=== PATIENT | male | born 1950 | race Caucasian/White ===

== ENCOUNTER 2021-12-08 12:51 | Emergency (ER) | payer MEDICARE ==
[~2021-12-08] VITALS: Ht 180.3 cm; Wt 78.2 kg
[2021-12-08] MEDS ORDERED: HYDROCHLOROTHIA25 MG PO (13:13)
[2021-12-08] MEDS ORDERED: METOPROLOL SUCC25 MG PO ×2 (13:13→13:59)
[2021-12-08] MEDS ORDERED: LISINOPRIL20 MG PO (13:14)
--- NOTE | 2021-12-10 15:17 | EKG ---
[facility] [address] [place], [place] [address] Signed Sinus bradycardia Left axis deviation Septal infarct , age undetermined Abnormal ECG No previous ECGs available Confirmed by DARIEN PARKER MD ([id number]) on 12/10/2021 3:17:55 PM Electronically Signed By: DARIEN PARKER MD 12/10/21 1517 PATIENT NAME: RODOLFO CONTEH Electrocardiogram DATE OF : 48 PHYSICIAN: DARIEN PARKER MD REPORT #: [id number] REPORT IS CONFIDENTIAL AND NOT TO BE RELEASED WITHOUT AUTHORIZATION
== END 2021-12-08 14:11 | disposition home or self-care (01) ==
LOC: ED 12:51
DX: I10 Essential (primary) hypertension (principal); Z79.899 Other long term (current) drug therapy
CPT/HCPCS: 93005; 93010; 99284-25

== ENCOUNTER 2024-10-12 06:58 | Day surgery (SDC) | payer OTHER ==
[2024-10-11 10:25] VITALS: BP 144/87
[~2024-10-12] VITALS: Ht 180.3 cm; Wt 81.8 kg
[~2024-10-12 06:58] MED LIST: DOCUSATE SODIU100 MG PO; FISH OIL 1,0001 EA10 PO; HYDROCHLOROTHIA25 MG PO; K-TAB ER20 MEQ PO; LASIX20 MG PO; LIDOCAINE PAIN1 EACH TP; LISINOPRIL20 MG PO; LOW DOSE ASPIRI81 MG PO; METOPROLOL SUCC25 MG PO; MIDAZOLAM HCL 5 MG/5 ML VIAL IV PRN; NORVASC5 MG PO; fentaNYL citrate 100 MCG/2 ML VIAL IV PRN
[2024-10-12] MEDS ORDERED: IBLOOD GLUCOSE TEST STRIP 1 EA TEST VI PRN (07:00)
[2024-10-12] MEDS ORDERED: LIDOCAINE HCL 1% 5 ML SDV INJ ONE (07:00)
[2024-10-12] MEDS ORDERED: LACTATED RINGER'S 1,000 ML IV SCH (07:00)
[2024-10-12] MEDS ORDERED: CEFAZOLIN SODIUM 2 GM/20 ML SYR IV SCH (07:00)
[2024-10-12 07:08] VITALS: BP 148/98
[2024-10-12] MEDS ORDERED: B COMPLEX1 EACH PO (07:16)
[2024-10-12] MEDS ORDERED: DAILY VALUE1 EACH PO (07:16)
[2024-10-12] MEDS ORDERED: propofoL 200 MG/20 ML VIAL ONE (07:51)
[2024-10-12] MEDS ORDERED: LIDOCAINE HCL 2% 5 ML SDV ONE (07:51)
[2024-10-12 08:41] VITALS: BP 149/85
--- NOTE | 2024-10-12 09:00 | NUR ---
0835 PT ARRIVED BACK TO DAY SURGERY ROOM 8 FROM SURGERY. PT RETURNED TO TO [facility] [place], CANCELLING CASE DUE TO PT HEART GOING IN AND OUT OF BIGEMINY AND FALLING INTO A RATE OF LOW 30S. PT SEEMS UNDERSTANDING. 0842 VITALS TAKEN, IV REMOVED FOR DISCHARGE. 0853 NOTE WRITTEN PER PT REQUEST WITH DR HDEZ OFFICE PHONE NUMBER. NOTES GIVES PATIENT DR HDEZ OFFICE PHONE NUMBER AND INSTRUCTS PT TO REQUEST HIS RECORDS FROM TODAY BE SENT TO HIS CARDIOLOGIEST. THIS INFOMATION WAS PASSES ALONG TO PT'S RIDE HIS DAUGHTER IN [place]. PT ALSO VERBALLY CONSENTED FOR HIS GRANDSON WHO IS A RN TO BE UPDATED ON THE SITUATION SO HE CAN ASSIST HIM. PT DISCHARGED FROM DAY SURGERY VIA A WHEELCHAIR TO THE FRONT OF THE HOSPITAL TO PT'S DAUGHTER IN [place].
== END 2024-10-12 08:53 | disposition home or self-care (01) ==
LOC: DS 06:58
PROVIDERS: ATTEND Colon & Rectal Surgery
DX: Z53.8 Procedure and treatment not carried out for other reasons (principal); E11.9 Type 2 diabetes mellitus without complications
CPT/HCPCS: J0690; J2003; J2704; J7121

== ENCOUNTER 2025-01-03 00:16 | Inpatient (IN) | payer OTHER, MEDICARE ==
[2025-01-03] VITALS (8 sets, daily range): BP systolic 100–150; BP diastolic 59–85
[~2025-01-03] VITALS: Ht 180.3 cm; Wt 94.7 kg
[~2025-01-03 00:16] MED LIST changes: +B COMPLEX1 EACH PO; +DAILY VALUE1 EACH PO; +LIDOCAINE PAIN1 EACH TOP; -LIDOCAINE PAIN1 EACH TP; -MIDAZOLAM HCL 5 MG/5 ML VIAL IV PRN; -fentaNYL citrate 100 MCG/2 ML VIAL IV PRN
[2025-01-03] MEDS ORDERED: DIPHTH,PERTUSS(ACELL),TET VAC 0.5 ML SYRINGE IM ONE (00:45)
[2025-01-03] MEDS ORDERED: IBLOOD GLUCOSE TEST STRIP 1 EA TEST XX ONE (00:45)
[2025-01-03 00:48] LABS: INR 1.03 (0.80-1.30); PROTIME 13.1 Sec (11.2-14.2)
[2025-01-03 00:50] LABS: PARTIAL THROMBOPLASTIN TIME 27.3 Sec (22.9-41.3)
[2025-01-03 01:01] LABS: ALBUMIN 3.7 g/dL (3.4-5.0); ALBUMIN/GLOBULIN RATIO 0.97 (1.1-2.4); ANION GAP 11.1 (7-21); BILIRUBIN, TOTAL 1.1 mg/dL (0.2-1.0); BUN/CREATININE RATIO 13.86 (6.0-28.6); CALCIUM 9.3 mg/dL (8.5-10.1); CREATININE, SERUM 1.01 mg/dL (0.70-1.30); POTASSIUM 4.1 mmol/L (3.5-5.1); PROTEIN, TOTAL 7.5 g/dL (6.4-8.2)
[2025-01-03 01:15] LABS: HEMATOCRIT 43.2 % (40.1-51.0); HEMOGLOBIN 14.7 g/dL (13.7-17.5); MCH 33.1 PG (25.7-32.2); MCV 97.3 fL (79.0-92.2); PLATELET COUNT 104 K/uL (163-337); RBC 4.44 M/uL (4.63-6.08)
[2025-01-03 01:26] LABS: BANDS, MANUAL DIFF 2; EOSINOPHILS, MANUAL DIFF 1; LYMPHOCYTES, MANUAL DIFF 17; MONOCYTES, MANUAL DIFF 20; NEUTROPHILS, MANUAL DIFF 60
[2025-01-03] MEDS ORDERED: ASPIRIN 81 MG CHEW PO ONE (01:30)
[2025-01-03 02:34] LABS: BILIRUBIN, URINE NEGATIVE (negative); BLOOD/HGB, URINE NEGATIVE (Negative); KETONE, URINE NEGATIVE (Negative); LEUK ESTERASE, URINE NEGATIVE (negative); NITRITE, URINE NEGATIVE (negative)
[2025-01-03 02:50] LABS: AMPHETAMINES, URINE NEGATIVE (NEGATIVE); BENZODIAZEPINE, URINE NEGATIVE (NEGATIVE); BUPRENORPHINE, URINE NEGATIVE (NEGATIVE); CANNABINOID, URINE POSITIVE (NEGATIVE); COCAINE, URINE NEGATIVE (NEGATIVE); ECSTASY, URINE NEGATIVE (NEGATIVE); FENTANYL, URINE NEGATIVE (NEGATIVE); METHADONE, URINE NEGATIVE (NEGATIVE); OPIATES, URINE NEGATIVE (NEGATIVE); OXYCODONE, URINE NEGATIVE (NEGATIVE); PHENCYCLIDINE, URINE NEGATIVE (NEGATIVE)
[2025-01-03] MEDS ORDERED: HYDROmorphone HCL 1 MG/ML SYR IV PRN ×2 (03:30→04:30)
[2025-01-03] MEDS ORDERED: LACTATED RINGER'S 1,000 ML IV ONE (03:30)
[2025-01-03] MEDS ORDERED: ondansetron HCL 4 MG/2 ML VIAL IV PRN ×2 (04:30→10:45)
[2025-01-03] MEDS ORDERED: ACETAMINOPHEN 325 MG TAB PO PRN (04:30)
--- NOTE | 2025-01-03 05:25 | NUR ---
PATIENT TRANSFERRED TO FLOOR BY THIS RN. PATIENT TRANSFERRED FROM STRETCHER TO BED BY STAFF. PATIENT JESSICA WELL. VS AND BED WEIGHT OBTAINED AND RECORDED. PATIENT EDUCATED ON ROOM AND CALL LIGHT. CPOX AND TELE #[address] BED ALARM ON. PATIENT ABLE TO SWALLOW WITH NO DIFFICULTY NOTED. CALL LIGHT IN REACH.
--- NOTE | 2025-01-03 06:00 | NUR ---
PATIENT REPORTS 2/10 RIGHT SHOULDER PAIN. 10/10 RIGHT SHOULDER PAIN WITH MOVEMENT. PRN PAIN MEDICATION ADMINISTERED PER PATIENT REQUEST. PRN NAUSEA MEDICATION ADMINISTERED. PATIENT DENIES FURTHER NEEDS AT THIS TIME. ASSESSMENT COMPLETE. CALL LIGHT IN REACH.
--- NOTE | 2025-01-03 07:00 | NUR ---
REPORT RECEIVED FROM SCHOOL BUS MECHANIC RN JAMES. PATIENT IS LYING IN BED WITH HOB ELEVATED. PATIENT WITH EYES OPEN AND RESPIRATIONS ARE EVEN AND UNLABORED. CALL LIGHT AND PERSONAL BELONGINGS ARE WITHIN REACH.
--- NOTE | 2025-01-03 08:38 | NUR ---
PATIENT IS GETTING BACK INTO BED WITH MARVIN BARBOZA AND MARVIN JOHNSON AT THE BEDSIDE.
--- NOTE | 2025-01-03 08:44 | NUR ---
INTO ROOM TO PROVIDE PT WITH ICE PACK FOR CLAVICLE. PT DOES NOT HAVE ARM IN SLING. SLING LAID ON SIDE RAIL CURRENTLY. WHEN ASKED WHY, PT REPLIED, "I DON'T WANT TO WEAR THAT THING! I'M NOT !!" PT VERY GRUFF AND AGITATED TOWARDS SUBJECT OF SLING. CALL LIGHT WITHIN REACH, NO OTHER NEEDS AT THIS TIME. DITCH DIGGER NOTIFIED.
--- NOTE | 2025-01-03 09:13 | NUR ---
NOTIFIED OF PATIENT REFUSING OCCUPATIONAL THERAPY AT THIS TIME.
--- NOTE | 2025-01-03 09:30 | NUR ---
PATIENT IS LYING IN BED WITH HOB ELEVATED. CIWA NEGATIVE. NIH WAS 1, SEE NIH STROKE SCALE. FULL ASSESSMENT COMPLETE AND DOCUMENTED IN THE CHART. PATIENT IS ALERT AND ORIENTED TIMES FOUR. PATIENT WITH A SLING IN THE ROOM FOR THE RIGHT ARM. PATIENT REFUSED. IV SITE FLUSHED WITH 10 ML NORMAL SALINE. LR IS INFUSING AT 100 ML/HR. IV DRESSING IS CLEAN, DRY, AND INTACT. SCAB NOTED ON THE RIGHT STEEL. MURMUR HEARD ON CARDIAC AUSCULTATION. SENSATION INTACT WITH TINGLING REPORTED IN THE BILATERAL UPPER EXTREMITIES. PATIENT REPORTS THAT HE HAS THIS AT BASELINE. CAPILLARY REFILL IN THE UPPER AND LOWER EXTREMITIES IS LESS THAN 3 SECONDS BILATERALLY. RADIAL AND PEDAL PULSES ARE STRONG BILATERALLY. NO EDEMA NOTED. PATIENT IS ON TELEMETRY NUMBER 1 AND IS IN SINUS BRADYCARDIA. PATIENT IS ON ROOM AIR WITH THE CPOX AT BEDSIDE. LUNG SOUNDS ARE CLEAR THROUGHOUT. PATIENT IS ON A REGULAR DIET AND BOWEL TONES ARE ACTIVE IN ALL FOUR QUADRANTS. PATIENT LAST BM WAS 01/02/25. PATIENT RATED PAIN 2/10 IN THE RIGHT SHOULDER BUT IS NOT REQUESTING ANYTHING FOR PAIN AT THIS TIME. PATIENT STATED NO FURTHER NEEDS AT THIS TIME. CALL LIGHT AND PERSONAL BELONGINGS ARE WITHIN REACH. ECHO IS IN THE ROOM AT THIS TIME.
--- NOTE | 2025-01-03 10:10 | NUR ---
CASE MANAGMENT IS SPEAKING WITH THE PATIENT AT THIS TIME.
--- NOTE | 2025-01-03 10:15 | NUR ---
ALERT AND ORIENTED IN BED. PATIENT LIVES ALONE IN A STUDIO. NO STAIRS. HAS WALKER AND SHOWER CHAIR. PATIENT DRIVES AT BASELINE AND DENIES ANY DIFFICULTY PAYING FOR FOOD, MEDICATIONS OR UTILITIES. NO KNOWN CM NEEDS AT THIS TIME, PENDING PT/OT INPUT.
[2025-01-03] MEDS ORDERED: LORazepam 2 MG/ML VIAL IV PRN (10:45)
[2025-01-03] MEDS ORDERED: LORazepam 2 MG/ML VIAL IV/IM PRN (10:45)
--- NOTE | 2025-01-03 10:56 | EKG ---
[facility] [address] [place] [address] Signed Sinus rhythm with frequent premature ventricular complexes Septal infarct (cited on or before 08-DEC-2021) Abnormal ECG When compared with ECG of 11-OCT-2024 09:30, premature ventricular complexes are now present QT has lengthened Confirmed by Jolynn Arango MD ([id number]) on 01/03/2025 10:55:55 AM Electronically Signed By: JOLYNN ARANGO MD 01/03/25 1056 PATIENT NAME: RODOLFO CONTEH Electrocardiogram DATE OF : 48 PHYSICIAN: JOLYNN ARANGO MD REPORT #: [id number] REPORT IS CONFIDENTIAL AND NOT TO BE RELEASED WITHOUT AUTHORIZATION
--- NOTE | 2025-01-03 11:14 | NUR ---
VISITED DURING SPIRITUAL CARE ROUNDS. PT IN OVERALL GOOD SPIRITS. NO IMMEDIATE NEEDS. FIBER TECHNOLOGIST PROVIDED SUPPORTIVE PRESENCE, HOSPITALITY, PRAYER. PT EXPRESSED GRATITUDE, HUMOR.
--- NOTE | 2025-01-03 11:40 | NUR ---
PATIENT LEFT THE FLOOR AT THIS TIME TO GET AN MRI.
--- NOTE | 2025-01-03 11:41 | NUR ---
PATIENT LEFT THE FLOOR AT THIS TIME FOR MRI.
[2025-01-03] MEDS ORDERED: PHARMACY RENAL DOSE ADJUSTMENT 1 DOSE MISC PO SCH (12:00)
--- NOTE | 2025-01-03 12:10 | NUR ---
PT BACK TO FLOOR FROM MRI, HOOKED UP TO TELE AND ICE PLACED ON TOWEL ON CLAVICLE.
--- NOTE | 2025-01-03 12:14 | NUR ---
PATIENT IS LYING IN BED WITH EYES CLOSED AND RESPIRATIONS ARE EVEN AND UNLABORED. CALL LIGHT AND PERSONAL BELONGINGS ARE WITHIN REACH.
--- NOTE | 2025-01-03 13:28 | NUR ---
PATIENT IS LYING IN BED WITH HOB ELEVATED. PATIENT WITH EYES OPEN AND RESPIRATIONS ARE EVEN AND UNLABORED. PATIENT IS EATING LUNCH. PATIENT REQUESTING PAIN MEDICATION WHEN IT IS AVAILABLE. THIS RN EXPRESSED UNDERSTANDING. PATIENT STATED NO FURTHER NEEDS AT THIS TIME. CALL LIGHT AND PERSONAL BELONGINGS ARE WITHIN REACH.
[2025-01-03] MEDS ORDERED: OXYCODONE HCL 5 MG TAB PO PRN (14:15)
--- NOTE | 2025-01-03 14:16 | NUR ---
PATIENT IS LYING IN BED WITH EYES CLOSED AND RESPIRATIONS ARE EVEN AND UNLABORED. PATIENT IS ON ROOM AIR. ICE PACK ON THE RIGHT SHOULDER IN PLACE. CALL LIGHT AND PERSONAL BELONGINGS ARE WITHIN REACH.
--- NOTE | 2025-01-03 14:35 | NUR ---
PATIENT IS SITTING ON THE EDGE OF BED WITH PHYSICAL THERAPY IN THE ROOM AT THIS TIME. PATIENT REPORTS PAIN IS A 5/10 IN THE RIGHT SHOULDER. PRN OXYCODONE ADMINISTERED PER THE EMAR. BRUISE NOTED ON THE RIGHT SHOULDER/RIGHT SIDE OF THE NECK. IV SITE FLUSHED WITH 10 ML NORMAL SALINE AND IS SALINE LOCKED. IV DRESSING IS CLEAN, DRY, AND INTACT. CARDIAC WITH A MURMUR HEARD ON AUSCULTATION. PATIENT REMAINS ON TELEMETRY NUMBER ONE AND IS IN NORMAL SINUS RHYTHM. PATIENT CONTINUES TO WORK WITH PHYSICAL THERAPY AT THIS TIME. PATIENT AND PT STATED NO FURTHER NEEDS.
--- NOTE | 2025-01-03 15:06 | NUR ---
PATIENT IS LYING IN BED WITH EYES CLOSED AND RESPIRATIONS ARE EVEN AND UNLABORED. PATIENT IS ON ROOM AIR WITH AN ICE PACK ON THE RIGHT SHOULDER. CALL LIGHT AND PERSONAL BELONGINGS ARE WITHIN REACH.
--- NOTE | 2025-01-03 15:54 | NUR ---
AFTER I DID PATIENT'S TWO CLOCK VITALS. BROUGHT HIM A ICE PACK AND NEW GLASS OF ICE WATER.
--- NOTE | 2025-01-03 16:11 | NUR ---
SLEEPING IN BED. STAFF STATE HE HAS NOT SLEPT AND REQUEST NOT TO WAKE HIM. WILL DISCUSS SNF OPTION WITH PATIENT IN THE MORNING.
--- NOTE | 2025-01-03 16:14 | NUR ---
PATIENT IS LYING IN BED WITH EYES CLOSED AND RESPIRATIONS ARE EVEN AND UNLABORED. ICE PACK ON THE RIGHT SHOULDER. CALL LIGHT AND PERSONAL BELONGINGS ARE WITHIN REACH.
--- NOTE | 2025-01-03 16:25 | NUR ---
THIS RN RESPONDS TO PATIENT'S SHOUTING OUT SHARPLY, ONCE. PATIENT IS RESTING IN BED AND STATES "I WAS HAVING A DREAM. I KILLED SOMEONE. I WAS JUST DREAMING." PATIENT IS REQUESTING A SANDWICH BOX - PROVIDED. BED ALARM ON, BED IN LOWEST POSITION. PATIENT HAS NO OTHER REQUESTS, CALL LIGHT AND PERSONAL BELONGINGS IN REACH.
--- NOTE | 2025-01-03 16:34 | NUR ---
BED ALARM SOUNDED AT THIS TIME. THIS RN AND CLIFF CERDA ENTERED THE ROOM. PATIENT REPORTS HAVING TO USE THE "SANDBOX". RN BRINGS IN THE COMMODE AND PATIENTS STATES "NOT THAT". PATIENT THEN ASKED FOR THE URINAL. PATIENT THEN ASSISTED TO STAND. PATIENT VOIDED 400 ML OF CONCENTRATD URINE. PATIENT SAT DOWN ON THE EDGE OF THE BED AND EATING A SANDWICH BOX. PATIENT IS MORE IRRITABLE THAN THIS MORNING. PATIENT STATED NO FURTHER NEEDS AT THIS TIME. CALL LIGHT AND PERSONAL BELONGINGS ARE WITHIN REACH. BED ALARM ON.
--- NOTE | 2025-01-03 17:14 | NUR ---
PATIENT IS LYING IN BED WITH EYES OPEN AND RSPIRATIONS ARE EVEN AND UNLABORED. PATIENT RATED PAIN 4/10 IN THE RIGHT SHOULDER. PATIENT IS NOT REQUESTING ANYTHING FOR PAIN AT THIS TIME. PATIENT FACE IS VERY RED AT THIS TIME. NO SWEAT NOTED. PATIENT WITH NO CONMPLAINTS OF FEELING TOO HOT. PATIENT STATED NO FURTHER NEEDS AT THIS TIME. CALL LIGHT AND PERSONAL BELONGINGS ARE WITHIN REACH.
--- NOTE | 2025-01-03 18:21 | NUR ---
medications reconciled
--- NOTE | 2025-01-03 19:32 | NUR ---
REPORT RECEIVED FROM CLIFF HERNANDEZ. ASSUMED PATIENT CARE AT THIS TIME. PATIENT RESTING WITH EYES CLOSED, RESPIRATIONS ARE EVEN AND UNLABORED. NO NEEDS IDENTIFIED AT THIS TIME, CALL LIGHT IN REACH.
--- NOTE | 2025-01-03 20:49 | NUR ---
PATIENT RESTING UPON ENTERING ROOM, PATIENT WOKE TO VERBAL CUES FROM RN. VS OBTAINED AND RECORDED. ASSESSMENT COMPLETED. CIWA SCORE 2 AT THIS TIME, PATIENT PLEASANT AND COPERATIVE. PATIENT DECLINES ANY NEEDS AT THIS TIME, CALL LIGHT IN REACH, BED ALARM ON.
[2025-01-04] VITALS (11 sets, daily range): BP systolic 130–154; BP diastolic 57–87
--- NOTE | 2025-01-04 00:10 | NUR ---
ROUNDED ON PATIENT. PATIENT RESTING WITH EYES CLOSED, RESPIRATIONS EVEN AND UNLABORED. NO NEEDS IDENTIFIED, CALL LIGHT IN REACH
--- NOTE | 2025-01-04 01:41 | NUR ---
ROUNDED ON PATIENT, VS OBTAINED AND RECORDED. INTAKE AND OUTPUT DOCUMENTED. PATIENT ASSISTED TO STAND AT EDGE OF BED, USED URINAL. BACK IN BED, PRN PAIN MEDICATION ADMINISTERED PER ORDER FOR 8/10 PAIN. NO FURTHER NEEDS, BED ALARM ON, CALL LIGHT IN REACH
--- NOTE | 2025-01-04 02:06 | NUR ---
CALL LIGHT ANSWERED. PATIENT BOOSTED IN BED AND REPOSITIONED PER REQUEST. PATIENT REPORTS DISCOMFORT IN RIGHT SHOULDER, RN OFFERED ARM SLING FOR COMFORT. PATIENT DECLINED. HE DENIES FURTHER NEEDS, CALL LIGHT IN REACH, BED ALARM ON.
--- NOTE | 2025-01-04 04:32 | NUR ---
PATIENT RESTING WITH EYES CLOSED, RESPIRATIONS ARE EVEN AND UNLABORED. NO NEEDS IDENTIFIED, CALL LIGHT IN REACH.
--- NOTE | 2025-01-04 05:23 | NUR ---
VS OBTAINED AND RECORDED, INTAKE DOCUMENTED. NEURO AND ALCOHOL WITHDRAWL ASSESSMENT COMPLETED. PATIENT ALERT AND ORIENTED X4. PRN PAIN MEDICATION ADMINISTERED PER ORDER. NO FURTHER NEEDS, CALL LIGHT IN REACH.
[2025-01-04 05:31] LABS: HEMATOCRIT 45.6 % (40.1-51.0); HEMOGLOBIN 15.1 g/dL (13.7-17.5); MCH 33.6 PG (25.7-32.2); MCHC 33.1 g/dL (32.3-36.5); MCV 101.3 fL (79.0-92.2); PLATELET COUNT 126 K/uL (163-337)
[2025-01-04 05:39] LABS: ANION GAP 10.9 (7-21); BUN/CREATININE RATIO 12.22 (6.0-28.6); CALCIUM 8.5 mg/dL (8.5-10.1); CREATININE, SERUM 0.9 mg/dL (0.70-1.30); MAGNESIUM 1.8 mg/dL (1.8-2.4); POTASSIUM 3.9 mmol/L (3.5-5.1)
[2025-01-04 05:49] LABS: BANDS, MANUAL DIFF 1; EOSINOPHILS, MANUAL DIFF 1; LYMPHOCYTES, MANUAL DIFF 18; MONOCYTES, MANUAL DIFF 21; NEUTROPHILS, MANUAL DIFF 59
--- NOTE | 2025-01-04 06:58 | NUR ---
REPORT RECEIVED FROM DIPTI DONAHUE. PATIENT IS LYING IN BED WITH EYES CLOSED AND RESPIRATIONS ARE EVEN AND UNLABORED. PATIENT REMAINS ON TELEMETRY NUMBER 1 AND IN SINUS BRADYCARDIA. CALL LIGHT AND PERSONAL BELONGINGS.
--- NOTE | 2025-01-04 07:38 | NUR ---
PATIENT IS LYING IN BED WITH EYES CLOSED AND RESPIRATIONS ARE EVEN AND UNLABORED. CALL LIGHT AND PERSONAL BELONGINGS ARE WITHIN REACH.
[2025-01-04] MEDS ORDERED: MULTIVITAMINS THERAPEUTIC 1 EA TAB PO SCH (08:00)
--- NOTE | 2025-01-04 08:33 | NUR ---
PATIENT IS LYING IN BED WITH HOB ELEVATED. PATIENT WITH EYES OPEN AND RESPIRATIONS ARE EVEN AND UNLABORED. MARVIN GRAY IS AT THE BEDSIDE. BREAKFAST TRAY IS IN THE ROOM. CALL LIGHT AND PERSONAL BELONGINGS ARE WITHIN REACH.
--- NOTE | 2025-01-04 09:00 | NUR ---
INTO SEE PATIENT. DISCUSSED SNF. PATIENT AGREEABLE. GAVE A PATIENT CHOICE LETTER. PREFERS [facility]. CHART FAXED TO [facility]. IM LETTER COMPLETED AT 0905. NO QUESITIONS OR FUTHER NEEDS. TALKED WITH BENY IN [place]. CONCERNED PATIENT DOES NOT MANAGE MEDS AT HOME AND AGREES TO SNF WELL.
--- NOTE | 2025-01-04 09:22 | NUR ---
[place] [facility] [place] FOR HEAD AND NECK DISEASE GRG and rib fractures FOR DIPLOPIA AND FURTHER WORKUP BEYOND OBSERVATION PERIOD, IV Dilaudid for pain MEDICARE INPT 01/03/2025 @ 1040 ORDER MATCHES REG NO AUTH REQUIRED PER MEDICARE RULES PLAN TO DC TO HOME VS SNF
--- NOTE | 2025-01-04 09:24 | NUR ---
PATIENT IS SITTING ON THE EDGE OF BED AND WORKING WITH OCCUPATIONAL THERAPY AT THIS TIME.
--- NOTE | 2025-01-04 09:51 | NUR ---
PATIENT IS WORKING WITH PHYSICAL THERAPY AT THIS TIME.
--- NOTE | 2025-01-04 09:52 | NUR ---
[facility] AT [facility] [place] STATES PATIENT IS NOT SERVICE CONNECTED.
--- NOTE | 2025-01-04 10:05 | NUR ---
PATIENT WAS IN BED AT THIS TIME, WORK AND FAMILY LIFE CONSULTANT ASSITED IN BRUSHING PATIENTS DENTURES FOR HIM, HE STATED IT HAD NOT BEEN DONE SINCE HE GOT HER. I INFORMED HIM THAT I WAS MORE THAN HAPPY TO HELP! ASSISTED PATIENT UP AND TO THE RESTROOM, WASHED HIS FACE, ASSITED HIM BACK TO THE SIDE OF BED. HELPED HIM WITH HIS DENTURES, OFFERED A SHOWER LATER TODAY CAUSE HE SAID HE WAS ITCHY, TO WHICH HE SAID MAYBE LATER. CALL LIGHT WITH IN REACH AND NOTHING ELSE NEEDED AT THIS TIME.
--- NOTE | 2025-01-04 10:10 | NUR ---
PATIENT IS LYING IN BED WITH HOB ELEVATED. PATIENT WITH EYES OPEN AND RESPIRATIONS ARE EVEN AND UNLABORED. PATIENT IS ALERT AND ORIENTED TIMES FOUR. SCAB NOTED ON THE RIGHT STEEL THAT IS LARGE. IV SITE FLUSHED WITH 10 ML NORMAL SALINE AND IS SALINE LOCKED. IV DRESSING IS CLEAN, DRY, AND INTACT. CARDIAC WITH A MURMUR HEARD ON AUSCULTATION. PATIENT IS ON TELEMETRY NUMBER 1 AND IS IN NORMAL SINUS RHYTHM. SENSATION INTACT WITH NUMBNESS AND TINGLING NOTED TO THE BILATERAL HANDS. CAPILLARY REFILL IS LESS THAN 3 SECONDS IN THE UPPER AND LOWER EXTREMITIES. NO EDEMA NOTED. RADIAL AND PEDAL PULSES ARE STRONG BILATERALLY. PATIENT IS ON ROOM AIR AND LUNG SOUNDS ARE CLEAR THROUGHOUT. PATIENT IS ON A REGULAR DIET AND BOWEL TONES ARE ACTIVE IN ALL FOUR QUADRANTS. LAST BM 01/02/25. CIWA IS NEGATIVE. PATIENT REPORTS PAIN IS A 3/10 IN THE RIGHT SHOULDER AND IS REQUESTING PAIN MEDICATION. PATIENT STATED NO FURTHER NEEDS AT THIS TIME. CALL LIGHT AND PERSONAL BELONGINGS ARE WITHIN REACH.
[2025-01-04] MEDS ORDERED: HYDROmorphone HCL 2 MG TAB PO PRN (10:45)
[2025-01-04] MEDS ORDERED: MORPHINE SULFATE 4 MG/ML VIAL IV PRN (10:45)
--- NOTE | 2025-01-04 11:05 | NUR ---
PATIENT IS LYING IN BED WITH HOB ELEVATED. PATIENT WITH EYES OPEN AND RESPIRATIONS ARE EVEN AND UNLABORED. PATIENT IS WORKING ON EXERCISES ARE THIS TIME WITH HIS RIGHT HAND. CALL LIGHT AND PERSONAL BELONGINGS ARE WITHIN REACH.
--- NOTE | 2025-01-04 11:16 | NUR ---
PATIENT WAS IN BED AT THIS TIME, MEAL COOKER CHARTED VITALS AND I&O'S, GOT SCD MACHINE HOOKED UP AND SCDS ON PATIENT PER CLIFF HERNANDEZ. MARVIN LEBLANC ASSISTED IN PULLING PATIENT UP IN BED, CALL LIGHT WITH IN REACH AND NOTHING ELSE NEEDED AT THIS TIME.
--- NOTE | 2025-01-04 12:03 | NUR ---
PATIENT IS LYING IN BED WITH HOB ELEVATED. PATIENT WITH EYES OPEN AND RESPIRATIONS ARE EVEN AND UNLABORED. PATIENT REMAINS ON TELEMETRY NUMBER 1. PATIENT STATED NO FURTHER NEEDS AT THIS TIME. CALL LIGHT AND PERSONAL BELONGINGS ARE WITHIN REACH.
--- NOTE | 2025-01-04 13:06 | NUR ---
PATIENT IS LYING IN BED WITH HOB ELEVATED. PATIENT IS ALERT AND ORIENTED TIMES FOUR. CIWA REMAINS NEGATIVE. PATIENT RATED PAIN 5/10 IN THE RIGHT SHOULDER. PATIENT IS REQUESTING PAIN MEDICATION. THIS RN EDUCATED PATIENT ON THE PAIN MEDICATIONS BEING AVAILABLE AFTER 1400. PATIENT EXPRESSED UNDERSTANDING IN WAITING AT THIS TIME. IV SITE FLUSHED WITH 10 ML NORMAL SALINE AND IS SALINE LOCKED. IV DRESSING IS CLEAN, DRY, AND INTACT. CARDIAC WITH A MURMUR HEARD ON AUSCULTATION. PATIENT IS ON TELEMETRY NUMBER 1 AND IN SINUS BRADYCARDIA. PATIENT STATED NO FURTHER NEEDS AT THIS TIME. CALL LIGHT AND PERSONAL BELONGINGS ARE WITHIN REACH.
--- NOTE | 2025-01-04 13:17 | NUR ---
PATIENT IS IN BED AT THIS TIME, COCKTAIL SERVER CHARTED VITALS AND I&O'S, GOT BED BATH WIPES FOR PATIENT TO WASH UP, CALL LIGHT WTIH IN REACH AND NOTHING ELSE NEEDED AT THIS TIME.
--- NOTE | 2025-01-04 15:10 | NUR ---
PT USES CALL LIGHT, STATES HE NEEDS TO USE URINAL. PT ASSISTED TO EDGE OF BED, PT STANDS WITH CHRISTOPHE WALKER. PT STATES "YOU NEED TO PULL DOWN MY BRITCHES", PT APPEARS FRUSTRATED, THIS RN REMINDS PT TO TREAT STAFF WITH RESPECT, PT VERBALIZES UNDERSTANDING, STATES "I'M SORRY". PT BACK TO BED AFTER USING URINAL. BED ALARM ON FOR SAFETY. PT STATES NO FURTHER NEEDS AT THIS TIME. CALL LIGHT WITHIN REACH. PRIMARY RN UPDATED.
--- NOTE | 2025-01-04 15:23 | NUR ---
PATIENT IS LYING IN BED WITH HOB ELEVATED. PATIENT WITH EYES OPEN AND RESPIRATIONS ARE EVEN AND UNLABORED. PATIENT ASKED THIS RN IF HE HAS BEEN DISRESPECTFUL OR DEMANDING. THIS RN STATED NO AND THAT HE HAS DOEN A GOOD JOB TODAY WORKING WITH PHYSICAL THERAPY. PATIENT EXPRESSED UNDERSTANDING. THIS RN ASKED IF SOMETHING HAD HAPPENED. PATIENT STATED NO. PATIENT STATED NO FURTHER NEEDS AT THIS TIME. CALL LIGHT AND PERSONAL BELONGINGS ARE WITHIN REACH.
--- NOTE | 2025-01-04 16:40 | NUR ---
PATIENT IS LYING IN BED WITH EYES CLOSED AND RESPIRATIONS ARE EVEN AND UNLABORED. PATIENT IS ON TELEMETRY NUMBER 1. PATIENT IS ON ROOM AIR. CALL LIGHT AND PERSONAL BELONGINGS ARE WITHIN REACH.
--- NOTE | 2025-01-04 17:10 | NUR ---
PATIENT IS SITTING IN THE CHAIR WITH BILATERAL LOWER EXTREMITIES ELEVATED. PATIENT WITH EYES OPEN AND RESPIRATIONS ARE EVEN AND UNLABORED. PATIENT STATED NO FURTHER NEEDS AT THIS TIME. CALL LIGHT AND PERSONAL BELONGINGS ARE WITHIN REACH.
--- NOTE | 2025-01-04 17:54 | NUR ---
PATIENT WAS IN HIS CHAIR AT THIS TIME, COMMUNICATION TECHNICIAN ASSITED PATIENT TO THE RESTROOM, CHANGED HIS SHEETS AND GOWN, AND BACK TO BED. COMMUNICATION TECHNICIAN CHARTED VITALS AND I&O'S CALL LIGHT WITH IN REACH AND NOTHING ELSE NEEDED AT THIS TIME.
--- NOTE | 2025-01-04 18:03 | NUR ---
PATIENT IS LYING IN BED WITH HOB ELEVATED. PATIENT WITH EYES OPEN AND RESPIRATIONS ARE EVEN AND UNALBORED. PATIENT IS WATCHING TV. PATIENT STATED NO FURTHER NEEDS AT THIS TIME. CALL LIGHT AND PERSONAL BELONGINGS ARE WITHIN REACH.
--- NOTE | 2025-01-04 19:17 | NUR ---
RECEIVED REPORT FROM CLIFF HERNANDEZ. PT RESTING IN BED, DENIES NEEDS OR CONCERNS AT THIS TIME. CALL LIGHT WITHIN REACH.
--- NOTE | 2025-01-04 19:59 | NUR ---
CAFETERIA ASSISTANT OBTAINED VITALS AND I&O. PT STATES NO NEEDS AT THIS TIME. CALL LIGHT WITHIN REACH AND BED ALARM ON.
--- NOTE | 2025-01-04 20:15 | NUR ---
PT RESTING IN BED. VSS. REPORTS 4/10 PAIN TO RIGHT SHOULDER-INITIALLY DECLINED OFFER OF PRN IV MORPHINE BUT EVENTUALLY ACCEPTED. PT CURRENTLY HAS DIGNA SLING OFF. LSC. HRR W/ MURMUR, TELEMETRY IN PLACE. BTA, REPORTS LBM 2 DAYS AGO. VOIDS WNL-URINAL. IV RW SL'D-SLIGHTLY TENDER W/ FLUSH. BRUISING NOTED TO RIGHT NECK AND CHEST. CIWA NEGATIVE. PT REPORTS FEELING DIZZY AT REST, AND ONGOING DOUBLE VISION. PT HAS CHRISTOPHE WALKER AT BEDSIDE AND REQUIRES CGA. CALL LIGHT WITHIN REACH.
--- NOTE | 2025-01-04 21:59 | NUR ---
ASSISTED PT TO EOB TO USE URINAL. PT DECLINED TO PLACE SLING TO RUE. STOOD AT EOB W/ FWW. VOIDS WNL. CALL LIGHT WITHIN REACH.
[2025-01-05] VITALS (13 sets, daily range): BP systolic 120–176; BP diastolic 60–85
--- NOTE | 2025-01-05 01:00 | NUR ---
PT AWAKE, REPORTS DIFFICULTY SLEEPING. DENIES OTHER NEEDS AT THIS TIME.
--- NOTE | 2025-01-05 01:05 | NUR ---
CALL LIGHT ANSWERED. PT NEEDED TO USE BATHROOM. CAN ASSISTED PT TO STAND AT BEDSIDE WITH FWW AND USE URINAL. PT THEN ASSISTED BACK TO BED. VITALS AND I&O OBTIANED. PT STATES NO FURTHER NEEDS AT THIS TIME. CALL LIGHT WITHIN REACH.
--- NOTE | 2025-01-05 03:44 | NUR ---
PT C/O 01/09 RIGHT SHOULDER PAIN-MEDICATED W/ PRN PO DILAUDID. REPORTS STILL NOT SLEEPING WELL.
--- NOTE | 2025-01-05 05:00 | NUR ---
PT SLEEPING SOUNDLY. APPEARS COMFORTABLE.
--- NOTE | 2025-01-05 05:20 | NUR ---
DX: RIGHT CLAVICLE FX, LEFT 9-12TH & RIGHT 8-9TH RIB FXS. S/P FALL AT HOME. WORKED UP FOR CVA-MRI NEG. TELENEUROLOGIST SUSPECTS BASILAR CVA NOT SEEN ON MRI. POOR SLEEP OVERNIGHT. RIGHT SHOULDER PAIN-PRN PO DILAUDID. PRIYAE SLING-PT NOT COMPLIANT. CIWA NEG. PENDING PLACEMENT TO [facility] M[facility]F H&R.
--- NOTE | 2025-01-05 05:26 | NUR ---
HOUSE CARPENTER HELPER OBTAINED VITALS, NO NEW I&O AT THIS TIME. TELE BATTERY CHANGED. PT STATES NO NEEDS AT THIS TIME. CALL LIGHT WITHIN REACH.
--- NOTE | 2025-01-05 06:56 | NUR ---
Pt report received from CLIFF Brannon. Pt is resting supine in bed, awake and alert. Pt states he is starting to have some pain going up into the right side of his neck and that it feels "muscular". Provided pt with a hot pack wrapped in a towel at this time. Side rails up x4, call light in reach, bedside table in reach, white board updated.
[2025-01-05] MEDS ORDERED: THIAMINE HCL 100 MG TAB PO SCH (08:00)
[2025-01-05] MEDS ORDERED: FOLIC ACID 1 MG TAB PO SCH (08:00)
[2025-01-05] MEDS ORDERED: METOPROLOL SUCCINATE 25 MG TABCR PO SCH (09:00)
[2025-01-05] MEDS ORDERED: AMLODIPINE BESYLATE 5 MG TAB PO SCH (09:00)
[2025-01-05] MEDS ORDERED: lisinopriL 20 MG TAB PO SCH (09:00)
--- NOTE | 2025-01-05 09:00 | NUR ---
VS obtained during medication administration and BP noted to be elevated with readings of 149/125 (129) P83 on left arm, and 152/103 (116) P77 on left arm. Antihypertensives administered per emar. Dr. Arango notified.
--- NOTE | 2025-01-05 09:48 | NUR ---
PATIENT WAS WORKING WITH PT WHEN I GOT IN HERE, THIS MORNING BEFORE BREAKFAST I ASKED IF HE WANTED TO GET INTO HIS CHAIR AND HE REFUSED. WHILE PT WAS WORKING WITH HIM I CHANGED HIS BEDDING, AND CLEANED UP HIS ROOM A BIT. PT ASSISTED HIM BACK TO BED, BECAUSE HE REFUSED TO GO TO HIS CHAIR BECAUSE HE SAID HE WAS IN TO MUCH PAIN. CLIFF BRANDON NOTIFIED. I GOT THE PATIENT A HOT PACK FOR HIS SHOULDER, CHARTED VITALS AND I&O'S, CALL LIGHT WITH IN REACH AND NOTHING ELSE NEEDED AT THIS TIME.
--- NOTE | 2025-01-05 10:33 | NUR ---
Dr. Arango in with pt
[2025-01-05] MEDS ORDERED: POLYETHYLENE GLYCOL 3350 1 PACKET PO SCH (10:42)
[2025-01-05 11:09] LABS: CHOLESTEROL/HDL RATIO 2.3
--- NOTE | 2025-01-05 11:13 | NUR ---
FAXED PROG NOTE TO [facility]
--- NOTE | 2025-01-05 11:17 | NUR ---
Pt ambulating the hallway with physical therapist. Pleasant mood.
--- NOTE | 2025-01-05 11:21 | NUR ---
PT NOT AVAILABLE FOR VISIT. PROVIDED PRAYER.
--- NOTE | 2025-01-05 12:45 | NUR ---
PATIENT ASSISTED TO SIT ON EDGE OF BED TO EAT LUNCH. PATIENT IS UPSET BECAUSE HE REPORTS HE HAS BEEN WAITING FOR AN HOUR FOR HELP. FOOD IS REHEATED IN THE [place], PATIENT IS NOW SITTING ON EDGE OF BED WITH BED ALARM ON AND BED IN LOWEST POSITION. PATIENT HAS NO OTHER REQUESTS, CALL LIGHT AND PERSONAL BELONGINGS IN REACH.
--- NOTE | 2025-01-05 13:09 | NUR ---
PATIENT STILL WAITING ACCEPTANCE TO A SNF. NO BEDS AVALIABLE.
--- NOTE | 2025-01-05 13:50 | NUR ---
REPORT RECEIVED FROM CLIFF BRANDON. PATIENT IS RESTING IN BED AND REQUESTING HIS ORAL PAIN MEDICATION. NO OTHER REQUESTS, CALL LIGHT AND PERSONAL BELONGINGS IN REACH.
--- NOTE | 2025-01-05 14:08 | NUR ---
ASSESSMENT COMPLETE, PRN PAIN MEDICATION ADMINISTERED. PATIENT TAKES PAIN MEDICATION WITHOUT ISSUE BUT EXPERIENCES SEVERE PAIN WHEN SITTING UP IN BED AND LAYING BACK DOWN AFTERWARDS. PATIENT DECLINES A FRESH HEAT PACK FOR HIS RIGHT SHOULDER AT THIS TIME. PATIENT AGREEABLE TO STARTING PRN BOWEL MEDICATIONS IN THE MORNING, PATIENT IS ALSO REQUESTING MELATONIN FOR HS TONIGHT. IV TO RIGHT FOREARM FLUSHES WNL, SALINE LOCKED. PATIENT REPORTS HE IS GOING TO TAKE A NAP AT THIS TIME. NO REQUESTS, CALL LIGHT AND PERSONAL BELONGINGS IN REACH.
--- NOTE | 2025-01-05 14:19 | NUR ---
PATIENT IS IN BED AT THIS TIME, METER RECORD CLERK CHARTED VITALS AND I&O'S, CALL LIGHT WITH IN REACH AND NOTHING ELSE NEEDED AT THIS TIME.
--- NOTE | 2025-01-05 15:12 | NUR ---
PATIENT RESTING IN BED, WAVES AT THIS RN, NO REQUESTS. CALL LIGHT AND PERSONAL BELONGINGS IN REACH.
--- NOTE | 2025-01-05 16:20 | NUR ---
PATIENT REPOSITIONED UP IN BED WITH THIS RN AND CLIFF [employer]. PATIENT REPORTS HIS RIGHT SHOULDER PAIN IS STILL A 5/10, CONTINUES TO DECLINES A HEAT PACK. NO REQUESTS, CALL LIGHT AND PERSONAL BELONGINGS IN REACH.
[2025-01-05] MEDS ORDERED: ATORVASTATIN 40 MG TAB PO SCH (17:00)
--- NOTE | 2025-01-05 17:02 | NUR ---
PATIENT ASSISTED TO SIT ON EDGE OF BED TO EAT SUPPER. BED ALARM OFF AT THIS TIME. PATIENT STATES HE WILL CALL SHORTLY FOR ASSISTANCE TO LAY BACK DOWN. CALL LIGHT AND PERSONAL BELONGINGS IN REACH.
--- NOTE | 2025-01-05 19:10 | NUR ---
SHIFT REPORT RECEIVED FROM DAYSHIFT RN TALA. pt AWAKE AND RESTING IN BED, ON RA WITH RR EVEN AND UNLABORED. BOARD UPDATED. pt REFUSES TO WEAR SLING AND AT TIMES REFUSES TO WORK WITH PT/OT PER SHIFT REPORT. BRUSING NOTED TO LEFT SHOULDER AREA, NO CREPITUS PALPATED BY THIS RN, PAINFUL TO TOUCH. NEX PO DILAUDID AVAILABLE AT 2230, pt AWARE. IV SITE WNL, SALINE LOCKED. TV GUIDE PROVIDED TO pt, NO NEEDS OR CONCERNS VERBALIZED BY pt, CALL LIGHT IN REACH AND pt VERBALIZED UNDERSTANDING NOT TO GET OOB WITHOUT STAFF IN ROOM FOR SAFETY.
--- NOTE | 2025-01-05 20:41 | NUR ---
assessment complete, vss and i&o's collected. pt denies need to void, urinal remains at bedside. pt verbalizes understanding to remain in bed until staff are present in room before getting oob for safety. iv site flushes easily, saline locked. no changes to scattered bruising to right shoulder. pt reports working with foam square that pt/ot gave to help w/ circulation, edema noted to right index finger-no change from start of shift. no crepitus noted w/ palpation to right shoulder/clavicle area. lung sounds clear throughout, pt reports he quit smoking in 2022. pt remains on tele, hr wnl. scd's in place. pt reports he plans on taking something for his constipation "tomorrow morning because it was too late to start tonight". no additional needs or concerns verbalized. call light and personal belongings in reach.
[2025-01-05] MEDS ORDERED: MELATONIN 3 MG TAB PO SCH (21:00)
--- NOTE | 2025-01-05 21:39 | NUR ---
per ccu rn jameson, pt had 7 beats v-tach. new set vs collected and stable. pt awake and resting in bed, denies sob and chest pain. dr coyle made aware including vs results, pt's potassium 3.9 and magnesium 1.8 yesterday morning, no labs collected this morning-dr coyle aware. morning labs already ordered. dr coyle to put in order for x1 potassium and x1 magnesium replacement and to recheck with am labs. pt updated and agrees to poc. call light in reach. float rn to room to hang iv mag rider.
--- NOTE | 2025-01-05 21:51 | NUR ---
OFFLINE CUTTER OBTAINED VITALS AT RN REQUEST. PT STATED NEED TO USE URINAL. OFFLINE CUTTER ASSISTED TO STAND AT BEDSIDE WITH FWW AND USE URINAL. PT ASSISTED BACK TO BED AND STATES NO FURTHER NEEDS AT THIS TIME. CALL LIGHT WITHIN REACH.
[2025-01-05] MEDS ORDERED: POTASSIUM CHLORIDE 10 MEQ TABCR PO ONE (22:00)
[2025-01-05] MEDS ORDERED: MAGNESIUM SULFATE 2 GM/50 ML BAG IV ONE (22:00)
--- NOTE | 2025-01-05 23:20 | NUR ---
pt reports pain w/ mag rider. faint reddness noted, but no swelling or signs of infiltration. pain stops when flushed with saline. spoke to telepharmacy, no specific interventions suggested prior to dc. iv dc'd wnl, cath tip intact. this rn attempted new iv, unable to get flash so with help from float rn bonnie, new iv placed to left forearm, brisk blood return noted, 20g. tourniquet removed.
[2025-01-06] VITALS (11 sets, daily range): BP systolic 113–150; BP diastolic 54–90
--- NOTE | 2025-01-06 00:09 | NUR ---
pt RESTING IN BED WITH EYES CLOSED, ON RA. RR EVEN AND UNLABORED. NO DISTRESS NOTED. IV SITE WNL, MAG RIDER INFUSING ORDERED. CALL LIGHT IN REACH.
--- NOTE | 2025-01-06 00:34 | NUR ---
ROUNDED ON pt, MAG RIDER COMPLETE. IV SITE WNL, BRISK BLOOD RETURN REMAINS NOTED AND IV SITE NOW SALINE LOCKED. NO CHANGES TO NEURO ASSESSMENT. pt STILL REPORT DOUBLE VISION AND DIZZINESS W/ STANDING, NO CHANGE FROM REPORT. WILL CONTINUE TO MONITOR. CALL LIGHT IN REACH.
--- NOTE | 2025-01-06 01:18 | NUR ---
rounded on pt, pt resting quietly in bed. on ra, rr even and unlabored. no distress noted. call light and personal belongings in reach.
--- NOTE | 2025-01-06 01:51 | NUR ---
COMPLAINT MANAGER OBTAINED VITALS AND I&O. PT STATES NO NEEDS AT THIS TIME. CALL LIGHT WITHIN REACH.
--- NOTE | 2025-01-06 01:57 | NUR ---
manager of training and development recently in room for vs, focused neuro and resp/cardiac assessment complete, no acute changes. iv site wnl, remains saline locked. call light in reach, scd's in place. pt deneis further needs or concerns.
--- NOTE | 2025-01-06 02:51 | NUR ---
rounded on pt, pt resting in bed w/ eyes closed. rr even and unlabored on ra. call light in reach.
--- NOTE | 2025-01-06 04:08 | NUR ---
CALL LIGHT ANSWERED. PT NEEDED TO USE URINAL. PAPER STEAMER 1PA PT TO STAND AT BSC WITH FWW AND USE URINAL. PT ASSISTED BACK TO BED. TELE BATTERY CHANGED. PT STATES NO FURTHER NEEDS AT THIS TIME. CALL LIGHT WITHIN REACH.
--- NOTE | 2025-01-06 04:16 | NUR ---
manager track recently in room to help pt void via urinal, 450mls output noted. prn pain medication given for reported 7/10 pain in right shoulder. no further needs or concerns verbalized, call light in reach.
--- NOTE | 2025-01-06 05:34 | NUR ---
ROUNDED ON pt, PT RESTING IN BED WITH EYES CLOSED. ON RA, RR EVEN AND UNLABORED. pt APPEARS COMFORTABLE AND RELAXED, CALL LIGHT IN REACH. IV SITE WNL, SALINE LOCKED.
[2025-01-06 06:02] LABS: BASOPHILS 0.9 % (0.2-1.2); EOSINOPHILS 0.2 % (0.8-7.0); HEMATOCRIT 44.1 % (40.1-51.0); HEMOGLOBIN 14.5 g/dL (13.7-17.5); LYMPHOCYTES 16.1 % (21.8-53.1); MCHC 32.9 g/dL (32.3-36.5); MCV 100.2 fL (79.0-92.2); MONOCYTES 33.5 % (5.3-12.2); NEUTROPHILS 42.8 % (34.0-67.9); PLATELET COUNT 124 K/uL (163-337)
--- NOTE | 2025-01-06 06:03 | NUR ---
LAB RECENTLY OUT OF ROOM. ROUNDED ON pt AND HELPED BEHAVIORAL ASSISTANT COMPLETE VS AND I&O'S. IV SITE WNL, REMAINS SALINE LOCKED. pt IN GOOD SPIRITS, DENIES ADDITIONAL NEEDS OR CONCERNS, DENIED NEED FOR HEAT PACK AND IS AWARE NEXT AVAILABLE PAIN MEDICATION IS AT 0800. CALL LIGHT AND PERSOANL BELONGINGS IN REACH.
[2025-01-06 06:11] LABS: BUN/CREATININE RATIO 14.1 (6.0-28.6); CALCIUM 8.5 mg/dL (8.5-10.1); CREATININE, SERUM 0.78 mg/dL (0.70-1.30); MAGNESIUM 2.2 mg/dL (1.8-2.4)
--- NOTE | 2025-01-06 06:52 | NUR ---
rounded on pt, dentures cleaned and rinsed off and pt putting thm in this morning. no additional needs or concerns verbalized, call light in reach.
--- NOTE | 2025-01-06 07:06 | NUR ---
Pt report received from CLIFF Qureshi.
--- NOTE | 2025-01-06 07:30 | NUR ---
Pt is resting supine in bed, A&O, states he "slept somewhat well" last night and is doing well. He rates his pain a 3 out of 10 while laying still but states that it increases when he moves around. He states he isn't using the sling because he doesn't move his arm anyway while he's laying in bed. White board updated. Side rails up x3, call light and bedside table in reach.
--- NOTE | 2025-01-06 09:00 | NUR ---
In with pt in response to call light. Pt needs to void. 1 person hands-on assist to stand and balance while he stood at the bedside and used the urinal, using FWW. Pt able to conduct the entire process mostly unassisted (assisted pt to pick his shorts up from the floor to pull them up). Pt voided 225ml clear jerri colored urine that smelled pungent. Pt denies any needs at this time. Physical therapist in with pt at this time.
--- NOTE | 2025-01-06 09:52 | NUR ---
PATIENT WORKED WITH PT. BED LINENS CHANGED. PATIENT RETURNED TO BED ONCE DONE. NO OTHER CARES WERE REQUESTED.
--- NOTE | 2025-01-06 10:58 | NUR ---
PT RESTS IN BED, WATCHES TV, REPORTS PAIN TOLERABLE AT THIS TIME. CALL LIGHT IN REACH, NO REQUETS AT THIS TIME.
--- NOTE | 2025-01-06 12:45 | NUR ---
PT EATS 50% OF LUNCH. REPORTS 4/10 PAIN, DILAUDID RECEIVED, SEE EMAR. PT BACK TO BED, CALL LIGHT AND BELONGINGS IN REACH. NO FURTHER REQUESTS AT THIS TIME.
--- NOTE | 2025-01-06 17:02 | NUR ---
In with pt for med administration per emar. Pt requests pain meds for 3 out of 10 pain before he has to sit up for dinner. Pt states he is currently feeling "indifferent". Pt requests cranberry juice, which is provided. Call light in reach.
--- NOTE | 2025-01-06 19:33 | NUR ---
REPORT RECEIVED FROM CLIFF BRANDON. ASSUMED PATIENT CARE. PATIENT RESTING WITH EYES CLOSED, RESPIRATIONS EVEN AND UNLABORED. NO NEEDS, CALL LIGHT IN REACH.
--- NOTE | 2025-01-06 20:14 | NUR ---
VS OBTAINED AND RECORDED. PATIENT RESTING IN BED WATCHING TV. SCHEDULED MEDICATION ADMINISTERED. ASSESSMENT COMPLETE. PATIENT DENIES ANY NEEDS, REPORTS TOLERABLE PAIN AT THIS TIME. CALL LIGHT IN REACH.
--- NOTE | 2025-01-06 23:18 | NUR ---
ROUNDED ON PATIENT, PATIENT REPORTS 4/10 PAIN MEDICATION, PRN PAIN MEDICATION ADMINISTERED PER REQUEST. DENIES FURTHER NEEDS, CALL LIGHT IN REACH
[2025-01-07] VITALS (12 sets, daily range): BP systolic 108–156; BP diastolic 50–91
--- NOTE | 2025-01-07 01:38 | NUR ---
PATIENT UP TO RESTROOM WITH SUPERVISOR DRY CELL ASSEMBLY WHEN HE WAS IN ROOM, PATIENT REPORTS HE WAS FEELING GREAT WITH MINIMAL PAIN PRIOR TO GETTING UP, HE DID NOT WEAR THE ARM SLING WHILE GETTING UP TO THE RESTROOM AND IS FEELING MORE PAIN NOW. BACK IN BED, PATIENT OFFERED ICE/HEAT PACKS WHICH WERE DENIED. PLANS TO REST IN BED WITH MINIMAL MOVEMENT OF THAT RIGHT ARM PER PATIENT. NO FURTHER NEEDS, CALL LIGHT IN REACH.
[2025-01-07 05:29] LABS: BASOPHILS 0.9 % (0.2-1.2); EOSINOPHILS 0.1 % (0.8-7.0); HEMOGLOBIN 15.1 g/dL (13.7-17.5); LYMPHOCYTES 19.5 % (21.8-53.1); MCHC 32.8 g/dL (32.3-36.5); MCV 100.7 fL (79.0-92.2); MONOCYTES 29.7 % (5.3-12.2); NEUTROPHILS 44.2 % (34.0-67.9); PLATELET COUNT 130 K/uL (163-337); RBC 4.57 M/uL (4.63-6.08)
--- NOTE | 2025-01-07 05:38 | NUR ---
in room to collect vs and i&o's with alden angel. vss. fresh ice water provided and prn pain medication given for reported 7/10 pain-see emar. pt reports miralax has yet to work and wondering if there are other options-primary rn aware and updated. call light in reach.
[2025-01-07 05:42] LABS: ANION GAP 11.1 (7-21); BUN/CREATININE RATIO 13.92 (6.0-28.6); CALCIUM 8.9 mg/dL (8.5-10.1); CREATININE, SERUM 0.79 mg/dL (0.70-1.30); MAGNESIUM 1.9 mg/dL (1.8-2.4); POTASSIUM 4.1 mmol/L (3.5-5.1)
--- NOTE | 2025-01-07 07:28 | NUR ---
PT RESTING IN BED WATCHING TV AT TIME OF SHIFT REPORT. DECLINES UP TO THE CHAIR OR BLINDS OPEN. FRESH H20 TO BEDSIDE CALL LIGHT IN REACH. PT AGREES HE IS COMFORTABLE DENIES NEEDS OF
[2025-01-07] MEDS ORDERED: MAGNESIUM CHLORIDE 64 MG TABCR PO ONE ×2 (07:30→19:45)
--- NOTE | 2025-01-07 07:58 | NUR ---
DR LEWIS NOTIFIED OF LOW HEART RATE ORDERS METOPROLOL TO BE HELD
--- NOTE | 2025-01-07 09:09 | NUR ---
PT UP ON SIDE OF BED EATS MORNING MEAL. CONTINUES TO BE PAINFUL WITH MOVEMENT AGREES TO PAIN MED AVAILABLE. PT DOES PERSONAL CARES DENIES OTHER NEEDS
--- NOTE | 2025-01-07 09:39 | NUR ---
PT WAS SITTING ON THE SIDE OF HIS BED EATING BREAKFAST WHEN i WENT INTO THE ROOM PT REPORTED FEELING DIZZY AND HAVING DOUBLE VISION, PT REPORTED BEING MUCH DIZZIER SINCE HE SAT UP PT DID NOT EAT VERY MUCH BREAKFAST, MAYBE 25% CALL LIGHT WAS NEXT TO THE PT ON HIS BED, PT REPORTED BEING FINISHED WITH HIS BREAKFAST AND I HELPED HIM LAY BACK IN HIS BED BEFORE I LEFT THE ROOM
[2025-01-07] MEDS ORDERED: SENNOSIDES/DOCUSATE 1 EA TAB PO SCH (09:45)
[2025-01-07] MEDS ORDERED: MECLIZINE HCL 25 MG TAB PO PRN (09:45)
--- NOTE | 2025-01-07 09:45 | NUR ---
PT WAS SITTING ON THE SIDE OF HIS BED, PT REPORTED FEELING VERY DIZZY AND EXPERIENCING DOUBLE VISION, THE PT'S NURSE WAS IN THE ROOM, MARVIN GARCIA REPORTED THE DIZZINESS AND DOUBLE VISION TO THE PT'S NURSE PT REPORTED THAT HE HAD DROPPED THE CUP WITH HIS MORNING MEDICATIONS, PT SAID HE TOOK 4 PILLS, DROPPED THE CUP, FOUND AND TOOK THREE PILLS THAT HE COULD SEE ON THE FLOOR AT HIS FEET, THEN MARVIN GARCIA LOOKED UNDER THE BED AND FOUND ONE MORE PILL THAT THE PT TOOK MARVIN GARCIA REPORTED TO THE PT'S NURSE WHAT HAD OCCURRED WITH DROPPING THE PILL CUP ON THE FLOOR AND ASKED THE NURSE TO LOOK AND MAKE SURE THERE WERE ONLY 8 PILLS IN THE CUP THAT NEEDED TO BE TAKEN BY THE PT, MARVIN GARCIA HELPED THE PT WITH A PARTIAL BED BATH AND PUT LOTION ON THE PT'S ARMS AND BACK, MARVIN GARCIA ALSO WASHED THE PT'S EYE GLASSES, UPON REQUEST OF THE PT, MARVIN GARCIA THEN PICKED UP THE ROOM, THE PT REFUSED A NEW GOWN, THE BED LINENS WERE PARTIALLY CHANGED, AND THE PT WAS LEFT WITH THE CALL LIGHT WITHIN REACH AND THE PT LAYING BACK IN HIS BED WITH A CLEAN BLANKET PULLED UP TO THE PT'S THIGHS, REQUESTED
--- NOTE | 2025-01-07 10:11 | NUR ---
PT LAYING IN BED, PT REPORTED FEELING "VERY DIZZY" WHEN HE SAT UP FOR HIS BREAKFAST PT ONLY ATE 25% OF HIS BREAKFAST PT REPORTED NOT NEEDING TO USE THE URINAL AT THIS TIME, MARVIN GARCIA REMINDED PT TO USE HIS CALL LIGHT WHEN HE NEEDS TO URINATE, ESPECIALLY DUE TO THE PT'S REPORTED INCREASED DIZZINESS MARVIN GARCIA REPORTED THE INCREASED DIZZINESS TO THE PT'S NURSE
--- NOTE | 2025-01-07 10:40 | NUR ---
BOILING TUB OPERATOR RECORDED PULSE AT 40 PER ROOM MONITOR. LISTENING APICALLY AND SEEING TELE PULSE IS 59 AND 60. SLOW RATE REPORTED TO DR LEWIS EARLIER
--- NOTE | 2025-01-07 11:26 | NUR ---
P/T WELL TOLERATED PT AMBULATED IN THE KING AND WAS COOPERATIVE WITH THERAPY. SITTING UP IN THE CHAIR AT THIS TIME CALL LIGHT AND NEEDED ITEMS IN REACH
--- NOTE | 2025-01-07 13:32 | NUR ---
PT RESTING IN BED WATCHING TV EATS 100% OF NOON MEAL. DENIES DISCOMFORTS OR NEEDS OF
--- NOTE | 2025-01-07 14:29 | NUR ---
PATIENT IN BED WATCHING TV AT THIS TIME. VITALS AND I&O'S DONE AND CHARTED. CALL LIGHT IN REACH. NO FURTHER NEEDS AT THIS TIME.
--- NOTE | 2025-01-07 16:46 | NUR ---
PT SITTING UP IN BED WATCHING TV FRESH H20 TO BEDSIDE
--- NOTE | 2025-01-07 17:55 | NUR ---
PATIENT SITTING UP IN BED AT THIS TIME. VITALS AND I&O'S DONE AND CHARTED. CALL LIGHT IN REACH. NO FURTHER NEEDS AT THIS TIME.
--- NOTE | 2025-01-07 18:18 | NUR ---
PT EATS MOST OF EVENING MEAL SITTING UP ON EDGE OF THE BED. RETURNS TO RESTING SITTING UP. PT HAS HAD NO C/O PAIN OR REQUEST OF MEDICATIONS OR OTHER FOR COMFORT.
--- NOTE | 2025-01-07 19:30 | NUR ---
REPORT RECEIVED FROM CLIFF ZHU. pt RESTING IN BED WATCHING TV. DENIES NEEDS. CALL LIGHT IN REACH.
--- NOTE | 2025-01-07 19:36 | NUR ---
PATIENT NOTED TO HAVE INCREASED HR ALARM ON HATCH SUPERVISOR. REVIEWED STRIP. PATIENT HAD AN APPROXIMATELY 10 BEAT RUN OF TACHYCARDIA WITH RATE READING AT 122. HR IMMEDIATELY RETURNED BACK TO 50S-60S. NOTIFIED MS CHARGE. THIS RN CALLED AND SPOKE TO DR. LEWIS. REVIEWED TELEMETRY READINGS AND HR. DR. LEWIS TO PLACE ORDER FOR PO MAGNESIUM AND ROUND ON MS UNIT. UPDATED CLIFF DONAHUE OF CONVERSATION WITH DR. LEWIS AND NEW ORDER.
--- NOTE | 2025-01-07 20:41 | NUR ---
CALL LIGHT ANSWERED, 1PA TO STAND AT SIDE OF BED FOR VOID IN URINAL. DIZZINESS AND DIPLOPIA NOTED. ASSISTED BACK TO BED. pt RATES PAIN 6/10 IN RIGHT SHOULDER, RIBS. PRN PAIN MEDICATION AND PRN MECLIZINE ADMINISTERED. pt DENIES ABD DISCOMFORT, NO BM REPORTED. SCHEDULED SENNA ADMINISTERED. ENCOURAGED PO FLUIDS/WATER. ASSESSMENT COMPLETE. VSS. CALL LIGHT AND PERSONAL SUPPLIES WITHIN REACH.
--- NOTE | 2025-01-07 23:06 | NUR ---
CHECKED ON pt. RESTING IN BED WITH EYES CLOSED, BREATHING UNLABORED. NO DISTRESS NOTED.
[2025-01-08] VITALS (11 sets, daily range): BP systolic 105–169; BP diastolic 56–95
--- NOTE | 2025-01-08 02:00 | NUR ---
IN ROOM FOR VS, pt AWAKE WHEN RN ENTERS ROOM. ASSESSMENT COMPLETE. RATES PAIN 6/10 IN RIGHT SHOULDER, SIDE. PRN MEDICATION ADMINISTERED. 1PA TO STAND AT SIDE OF BED FOR VOID, UNSTEADY ON FEET. pt VOIDS IN URINAL AND BACK TO BED. CALL LIGHT AND PERSONAL SUPPLIES WITHIN REACH.
--- NOTE | 2025-01-08 04:30 | NUR ---
CHECKED ON pt. RESTING IN BED WITH EYES CLOSED, BREATHING EQUAL AND UNLABORED. NO DISTRESS NOTED.
--- NOTE | 2025-01-08 05:25 | NUR ---
POTATO PEELING MACHINE OPERATOR OUT OF ROOM. VSS. pt DENIES NEED FOR PRN PAIN MEDICATION. REQUESTING TO REST. CALL LIGHT IN REACH.
[2025-01-08 05:46] LABS: ANION GAP 10.2 (7-21); CALCIUM 8.8 mg/dL (8.5-10.1); CREATININE, SERUM 0.8 mg/dL (0.70-1.30); MAGNESIUM 1.9 mg/dL (1.8-2.4); POTASSIUM 4.2 mmol/L (3.5-5.1)
[2025-01-08 05:57] LABS: HEMATOCRIT 42.9 % (40.1-51.0); HEMOGLOBIN 14.2 g/dL (13.7-17.5); MCH 33.2 PG (25.7-32.2); MCHC 33.1 g/dL (32.3-36.5); MCV 100.2 fL (79.0-92.2); PLATELET COUNT 134 K/uL (163-337); RBC 4.28 M/uL (4.63-6.08)
[2025-01-08 06:14] LABS: EOSINOPHILS, MANUAL DIFF 2; LYMPHOCYTES, MANUAL DIFF 34; MONOCYTES, MANUAL DIFF 26; NEUTROPHILS, MANUAL DIFF 38
--- NOTE | 2025-01-08 07:24 | NUR ---
PT RESTING IN BED AT TIME OF SHIFT REPORT, AGREES HE IS COMFORTABLE. DECLINES UP TO THE CHAIR STATING HE WILL SIT ON EDGE OF THE BED FOR MORNING MEAL. FRESH H20 AND CALL LIGHT AT BEDSIDE
[2025-01-08] MEDS ORDERED: MAGNESIUM CHLORIDE 64 MG TABCR PO ONE (08:00)
--- NOTE | 2025-01-08 08:11 | NUR ---
PT UP TO THE CHAIR FOR MORNING MEAL. DR LEWIS NOTIFIED OF HR IN THE 50'S HE INSTRUCTS TO HOLD METOPROLOL FOR NOW, PERHAPS GIVE A LITTLE LATER. PT HAS CALL LIGHT AND NEEDED ITEMS IN REACH. ENCOURAGED HIM TO MAKE ANY NEEDS OF PAIN MED KNOWN THROUGHOUT THE SHIFT.
--- NOTE | 2025-01-08 09:00 | NUR ---
Spoke with Jai and discussed placement. He is willing to go out of town if there is not a bed available in town. Chart was sent to [facility] by my coworker. Pt denies other needs. He would prefer to stay in [place]. Updated I am sending his weekend notes to [place] and hopefully there will be a bed open.
--- NOTE | 2025-01-08 09:06 | NUR ---
PT EATS ONLY BITES OF MORNING MEAL STATING IT TASTES TERRIBLE. OTHER ITMES OFFERED AND REFUSED. PT CONTINUES UP IN THE CHAIR DENIES NEEDS AT THIS TIME. DC MOTORCYCLE REPAIRER IN TO DISCUSS PT PREFERENCE AND PLACEMENT
--- NOTE | 2025-01-08 09:21 | NUR ---
PATIENT UP IN CHAIR AT THIS TIME. VITALS AND I&O'S DONE AND CHARTED. LINENS CHANGED. PATIENT DOES NOT WANT TO SHOWER AT THIS TIME, WILL ASK AGAIN LATER. CALL LIGHT IN REACH. NO FURTHER NEEDS AT THIS TIME. AM CARE DONE.
--- NOTE | 2025-01-08 10:05 | NUR ---
PT WORKING WITH P/T
--- NOTE | 2025-01-08 10:24 | NUR ---
PT HR INCREASES TO 90'S WITH ACTIVITY DIPS TO 70'S AT REST. METOPROLOL ADMINISTERED PER DR LEWIS INSTRUCTIONS. PT AMBULATES THE KING WITH P/T AND DOES SELF CARES WITH O/T. RETURNS TO BED TO REST.
--- NOTE | 2025-01-08 13:21 | NUR ---
Received a call from [facility]. She is requesting pts medicare infor. Faxed face sheet and demo sheet with SS number as they will also need this. They have not accepted this pt at this time.
--- NOTE | 2025-01-08 14:30 | NUR ---
PATIENT IN BED WATCHING TV AT THIS TIME. VITALS AND I&O'S DONE AND CHARTED. PATIENT REFUSED SHOWER AGAIN AT THIS TIME. CALL LIGHT IN REACH. NO FURTHER NEEDS AT THIS TIME.
--- NOTE | 2025-01-08 14:45 | NUR ---
PT RESTING IN BED DENIES NEEDS AT THIS TIME
--- NOTE | 2025-01-08 17:08 | NUR ---
PT RESTING IN BED WATCHING TV. ASKED IF MEKLAZINE IS HELPING WITH DIZZINESS, HE HAS HAD 3 DOSES OF THIS MED SINCE YESTERDAY. PT REPORTS HE DOES NOT NOTICE ANY DIFFERENCE AFTER TAKING THIS MEDICATION.
--- NOTE | 2025-01-08 17:22 | NUR ---
PT UP ON THE EDGE OF THE BED FOR EVENING MEAL. HE WAS GIVEN PAIN MED AT START OF SHIFT AND ENCOURGAGED TO MAKE NEED OF PAIN RELIEF KNOWN THROUGHOUT THE DAY. PT HAS NOT C/O PAIN OR REQUESTED MED ENTIRE SHIFT. PT UP TO VOID AND WORKED WITH P/T AMBULATING IN THE KING NO C/O
--- NOTE | 2025-01-08 17:50 | NUR ---
PATIENT BACK TO BED FROM BSC, 1PA FWW. VITALS AND I&O'S DONE AND CHARTED. CALL LIGHT IN REACH. NO FURTHER NEEDS AT THIS TIME.
--- NOTE | 2025-01-08 19:27 | NUR ---
RECEIVED REPORT. PT ALERT, RESTING IN BED. NO NEEDS AT PRESENT, CALL LIGHT IN REACH
--- NOTE | 2025-01-08 21:15 | NUR ---
ASSESSMENT. OFFERED PM MEDS, PT DCLINES SENNA AND ASKS FOR MELATONIN LATER IN EVENING. NO OTHER NEEDS, PAIN WELL CONTROLLED. CALL LISA BARROS REACH AND BED ALARM ACTIVE
--- NOTE | 2025-01-08 22:05 | NUR ---
GIVEN NIGHTTIME MELATONIN PER PT REQUEST. NO OTHER NEEDS, CALL LIIGHT IN REACH, BED ALARM ACTIVE
--- NOTE | 2025-01-09 00:11 | NUR ---
PT RESTING IN BED WITH EYES CLOSED, RISE AND FALL OF CHEST NOTED. CALL LIGHT IN REACH
--- NOTE | 2025-01-09 01:40 | NUR ---
RESPONDED TO BED ALARM. ASSISTED PT TO BATHROOM CONTACT GUARD WITH FWW. VITALS, AM ASSESSMENT. PT DENIES PAIN. NO OTHER NEEDS, CALL LIGHT IN REACH
[2025-01-09 01:44] VITALS: BP 136/49
[2025-01-09 01:47] VITALS: BP 136/49
--- NOTE | 2025-01-09 04:36 | NUR ---
PT RESTING WITH EYES CLOSED, RISE AND FALL OF CHEST NOTED. CALL LIGHT IN REACH, BED ALARM ACTIVE
[2025-01-09 05:13] VITALS: BP 132/71
[2025-01-09 05:22] LABS: HEMATOCRIT 46.8 % (40.1-51.0); HEMOGLOBIN 15.4 g/dL (13.7-17.5); MCH 33.1 PG (25.7-32.2); MCHC 32.9 g/dL (32.3-36.5); MCV 100.6 fL (79.0-92.2); PLATELET COUNT 140 K/uL (163-337); RBC 4.65 M/uL (4.63-6.08)
[2025-01-09 05:32] LABS: ANION GAP 13.5 (7-21); BUN/CREATININE RATIO 14.28 (6.0-28.6); CALCIUM 9.2 mg/dL (8.5-10.1); CREATININE, SERUM 0.84 mg/dL (0.70-1.30); MAGNESIUM 2.1 mg/dL (1.8-2.4); POTASSIUM 4.5 mmol/L (3.5-5.1)
[2025-01-09 05:36] LABS: BANDS, MANUAL DIFF 2; LYMPHOCYTES, MANUAL DIFF 33; MONOCYTES, MANUAL DIFF 11; NEUTROPHILS, MANUAL DIFF 54
--- NOTE | 2025-01-09 07:31 | NUR ---
REPORT RECIEVED FROM CLIFF MICHAEL. PT SITTING UP IN BED. PT AWAKE AND ALERT AND HAS NO CURRENT CONCERNS AT THIS TIME. PT HAS CALL LIGHT IN REACH AND INSTRUCTED TO CALL IF THEY HAVE ANY CONCERNS.
--- NOTE | 2025-01-09 08:15 | NUR ---
IN TO SPEAK WITH PATIENT. STATES HE KNOWS HE IS GOING TO [facility] TODAY AND THINKS HIS [id number], ALFONSO IS DRIVING HIM. NOTIFIED HIM WHEELCHAIR VAN IS SCHEDULED FOR 10:00 BUT WILL CALL TO SPEAK WITH ALFONSO TO ASK IF SHE IS DRIVING HIM. CALLED AND LEFT MESSAGE FOR [employer] TO PLEASE CALL BACK REGARDING TRANSPORT PLAN FOR PATIENT TO ENSURE CANCELLATION OF WHEELCHAIR CAN BE DONE IF NEEDED.
[2025-01-09 09:15] VITALS: BP 109/57
[2025-01-09] MEDS ORDERED: LIPITOR40 MG PO (09:16)
--- NOTE | 2025-01-09 09:17 | NUR ---
PT MOVED TO EDGE OF BED AND TOLERATED WELL. PT CURRENTLY SITTING ON EDGE OF BED EATING BREAKFAST WITH NO CURRENT CONCERNS PT HAS CALL LIGHT IN REACH AT THIS TIME.
[2025-01-09] MEDS ORDERED: HYDROCODON-ACE1 EA10 PO (09:20)
[2025-01-09] MEDS ORDERED: ASPIRIN81 MG PO (09:28)
--- NOTE | 2025-01-09 09:38 | NUR ---
ORDER, PRESCRIPTIONS, DC SUMMARY AND PASRR FAXED TO [facility].
--- NOTE | 2025-01-09 11:10 | NUR ---
PT TRANSPORTED VIA WHEELCHAIR VAN, PT REPORT CALLED TO [facility], REPORT GIVEN TO LANDEN. ALL QUESTIONS ANSWERED.
== END 2025-01-09 09:55 | DRG 563 ==
LOC: ED 00:16 → MS 00:17
PROVIDERS: Family Medicine; Internal Medicine; ADMIT Student in an Organized Health Care Education/Training Program; ATTEND Student in an Organized Health Care Education/Training Program
DX: S42.011A Anterior displaced fracture of sternal end of right clavicle, initial encounter for closed fracture (principal); S22.42XA Multiple fractures of ribs, left side, initial encounter for closed fracture; I10 Essential (primary) hypertension; H53.2 Diplopia; J44.9 Chronic obstructive pulmonary disease, unspecified; I25.10 Atherosclerotic heart disease of native coronary artery without angina pectoris; M19.90 Unspecified osteoarthritis, unspecified site; E78.00 Pure hypercholesterolemia, unspecified; I35.0 Nonrheumatic aortic (valve) stenosis; F10.90 Alcohol use, unspecified, uncomplicated; F12.90 Cannabis use, unspecified, uncomplicated; Z90.49 Acquired absence of other specified parts of digestive tract; Z90.89 Acquired absence of other organs; Z87.81 Personal history of (healed) traumatic fracture; Z98.890 Other specified postprocedural states; Z79.899 Other long term (current) drug therapy; Z87.891 Personal history of nicotine dependence; Z79.811 Long term (current) use of aromatase inhibitors; W06.XXXA Fall from bed, initial encounter
CPT/HCPCS: 36415; 70450; 70496; 70498; 70551; 71045; 71250; 73030; 73200; 80048; 80053; 80061; 80307; 81003; 82550; 83036; 83735; 84100; 84484; 85025; 85610; 85651; 85730; 86140; 90715; 93005; 93010; 93306; 97110; 97116; 97161; 97165; 97530; 97535; A9270; J1171; J2060; J2270; J2405; J3475; J7121; Q9967